=== PATIENT | female | born 2000 | race Caucasian/White ===

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

== ENCOUNTER 2021-11-22 09:02 | Inpatient (IN) ==
[2021-11-22] MEDS ORDERED: OXYTOCIN 30 UNITS/500 ML BAG IV PRN ×2 (11:32→13:48)
[2021-11-22] MEDS ORDERED: LACTATED RINGER'S 1,000 ML IV PRN (11:32)
[2021-11-22 11:58] LABS: Hematocrit (blood only) 38.7 % (37-47); Hemoglobin 13.4 g/dL (12.0-16.0); Mean Corpuscular Hgb Conc 34.6 g/dL (32-36); Mean Corpuscular Volume 95.3 fL (80-100); Mean Platelet Volume 11.5 fL (7.4-10.4); Platelet Count 252 K/uL (130-400); RDW Coefficient of Variation 13.6 % (11.5-14.5); RDW Standard Deviation 47.2 fL (36.4-46.3); Red Blood Count 4.06 M/uL (4.2-5.4); White Blood Count 18.02 K/uL (4.8-10.8)
[2021-11-22] MEDS ORDERED: BUTORPHANOL TARTRATE 1 MG/ML VIAL IV PRN (11:59)
[2021-11-22] MEDS ORDERED: LIDOCAINE 1% LOCAL 20 ML VIAL ONE (13:00)
[2021-11-22] MEDS ORDERED: bisacodyL 10 MG SUPP PR PRN (13:48)
[2021-11-22] MEDS ORDERED: HYDROCORTISONE ACETATE 25 MG SUPP PR PRN (13:48)
[2021-11-22] MEDS ORDERED: BENZOCAINE 20% AER SPR 82.5 GM CAN EXT PRN (13:48)
[2021-11-22] MEDS ORDERED: ACETAMINOPHEN 325 MG TAB PO PRN (13:48)
[2021-11-22] MEDS ORDERED: DIPHTHERIA/TETANUS/PERTUSSIS 0.5 ML SYR/VIAL IM ONE (13:48)
[2021-11-22 14:14] LABS: CO2 Cord Arterial Blood 46 mmHg (39.1-73.5); HCO3 Cord Arterial Blood 16 mmol/L (19.7-28.5); PO2 Cord Arterial Blood 16 mmHg (4.1-31.7); pH Cord Arterial Blood 7.17 (7.1-7.38)
[2021-11-22 14:17] LABS: Oxygen Sat Cord Arterial Blood < 60.0 % (<60)
[2021-11-22 14:25] LABS: Base Excess Cord Venous Blood -9.3 mEq/L (-7.7-1.9); Cord Venous Blood HCO3 20 mmol/L (18.4-26.8); Cord Venous Blood PCO2 53 mmHg (30.4-57.2); Cord Venous Blood PO2 19 mmHg (14.1-43.3); Cord Venous Blood pH 7.18 (7.20-7.44)
[2021-11-22 14:27] LABS: O2 Saturation Cord Venous Bld < 60.0 % (<68)
--- NOTE | 2021-11-22 17:57 | Delivery Summary ---
DATE OF SERVICE: 11/22/2021 DELIVERY NOTE: The patient delivered a live male in left occiput anterior presentation. Ther e was no nuchal cord. Infant was delivered and placed on mother's abdomen. Cord was clamped and vazquez ded over to the waiting pediatric team. 's weight and Apgars are in the pediatric record. The re was meconium on rupture of membranes and placenta was spontaneously delivered. Placenta on examin ation appeared to be grossly stained with meconium. Cord gases and cord blood was obtained. Inspection of the perineum showed a vaginal second-degree laceration, which was repaired with Vicryl in layers. There was also a laceration on the right labia, which was repaired with 3-0 Vicryl. Rectal exam post-repair showed good sphincter tone. No sutures were palpated in the rectum. Estimated blood loss was 450 mL. The patient and baby in recovery. Job ID: [id number]
[2021-11-22] MEDS ORDERED: Flu Vaccine (Fluarix) 0.5mL SYR (Standard Dose) IM ONE (19:00)
[2021-11-22] MEDS: IBUPROFEN 600 MG TAB PO PRN (19:39)
[2021-11-22] MEDS: DOCUSATE SODIUM 100 MG CAP PO SCH (22:51)
[2021-11-23] MEDS: IBUPROFEN 600 MG TAB PO PRN ×2 (02:01→08:29)
[2021-11-23 06:32] LABS: Hemoglobin 11.2 g/dL (12.0-16.0); Mean Corpuscular Hemoglobin 33.3 pg (25-34); Mean Corpuscular Hgb Conc 33.9 g/dL (32-36); Mean Corpuscular Volume 98.2 fL (80-100); Mean Platelet Volume 11.2 fL (7.4-10.4); Platelet Count 213 K/uL (130-400); RDW Coefficient of Variation 13.9 % (11.5-14.5); RDW Standard Deviation 49.3 fL (36.4-46.3); Red Blood Count 3.36 M/uL (4.2-5.4); White Blood Count 16.94 K/uL (4.8-10.8)
[2021-11-23] MEDS ORDERED: PRENATAL VITAMIN 1 TAB PO SCH (08:00)
[2021-11-23] MEDS: DOCUSATE SODIUM 100 MG CAP PO SCH (08:30)
--- NOTE | 2021-11-23 09:36 | Obstetrical Progress Note ---
Date of Service November 23, 2021 Subjective Ambulation: ambulating normally Voiding: no voiding problems Passing Gas:: Yes Diet Tolerance:: regular diet Lochia:: Small Feeding Type:: breast feeding Current Pain Level(1-10): 0 doing well. wants to go home and go to nesting. Physical Exam Constitutional WD/WN, vitals as above comfortable abdomen soft and non-tender, fundus firm. no edema. neg Noy's. Results & Data ([facility]) Vital Signs (Past 12 Hours) Vital Signs Temp Pulse Resp BP BP 11/23/21 08:33 36.8 C 73 108/68 11/23/21 04:01 36.7 C 78 16 140/85 11/23/21 00:00 36.7 C 74 74 H 107/67 Laboratory Results Laboratory Results - last 72 hr 11/22/21 11/22/21 11/22/21 09:41 11:45 12:53 WBC 18.02 H RBC 4.06 L Hgb 13.4 Hct 38.7 MCV 95.3 MCH 33.0 MCHC 34.6 RDW Std Deviation 47.2 H RDW Coeff of Caty 13.6 Plt Count 252 MPV 11.5 H Cord ABG pH 7.17 Cord ABG pCO2 46 Cord ABG pO2 16 Cord ABG HCO3 16 L Cord ABG Base Excess -12.0 L Cord ABG O2 Sat < 60.0 Cord VBG pH Cord VBG pCO2 Cord VBG pO2 Cord VBG HCO3 Cord VBG Base Excess Cord VBG O2 Sat Barometric Pressure 734.2 Blood Gas Comments JANG SARS-CoV-2, RNA, NAAT NEGATIVE 11/22/21 11/23/21 12:53 06:05 WBC 16.94 H RBC 3.36 L Hgb 11.2 L Hct 33.0 L MCV 98.2 MCH 33.3 MCHC 33.9 RDW Std Deviation 49.3 H RDW Coeff of Caty 13.9 Plt Count 213 MPV 11.2 H Cord ABG pH Cord ABG pCO2 Cord ABG pO2 Cord ABG HCO3 Cord ABG Base Excess Cord ABG O2 Sat Cord VBG pH 7.18 L Cord VBG pCO2 53 Cord VBG pO2 19 Cord VBG HCO3 20 Cord VBG Base Excess -9.3 L Cord VBG O2 Sat < 60.0 Barometric Pressure 734.2 Blood Gas Comments JANG SARS-CoV-2, RNA, NAAT
[2021-11-23] MEDS ORDERED: bisacodyL 5 MG TABEC PO SCH (20:00)
== END 2021-11-23 13:20 | disposition home or self-care (01) | DRG 807 ==
LOC: OPB 09:02 → 4S1 09:07 → 4S2 17:39